=== PATIENT | female | born 1995 | race Caucasian/White ===

== ENCOUNTER → 2023-12-30 09:22 | Outpatient (REF) | payer BC, SELFPAY | LOC: PNTC 09:22 | PROVIDERS: ATTENDING PHYSICIAN Advanced Practice Midwife | DX: O36.60X0 Maternal care for excessive fetal growth, unspecified trimester, not applicable or unspecified (principal) | CPT/HCPCS: 76816 ==

== ENCOUNTER 2024-01-09 15:43 | Observation (INO) | payer BC, SELFPAY ==
[2024-01-09 15:48] VITALS: BP 124/86; BMI 36.6
== END 2024-01-09 16:32 | disposition home or self-care (01) ==
LOC: LDRP 15:43
PROVIDERS: ADMITTING PHYSICIAN Obstetrics & Gynecology; FAMILY PHYSICIAN Family Medicine; REFERRING PHYSICIAN Obstetrics & Gynecology
DX: O36.8130 Decreased fetal movements, third trimester, not applicable or unspecified (principal); Z3A.37 37 weeks gestation of pregnancy
CPT/HCPCS: 36415; 86850; 86900; 86901; G0378

== ENCOUNTER 2024-01-26 23:54 | Inpatient (IN) | payer BC, SELFPAY ==
[2024-01-27 00:06] VITALS: BP 122/84; BMI 37.4
[2024-01-27] MEDS: LR 1000 IV ×2 (00:55→03:59)
[2024-01-27 01:15] LABS: % Basophils 0.2 % (0-2); % Eosinophils 0.7 % (0-6); % Immature Granulocytes 0.8 % (0-0.5); % Lymphocytes 15.5 % (20.5-51.1); % Monocytes 6.4 % (1.7-9.3); % Neutrophils 76.4 % (42.2-75.2); Absolute Eosinophils 0.1 10^3/uL (0-0.7); Absolute Immature Granulocytes 0.1 10^3/uL (0-0.05); Absolute Lymphocytes 1.6 10^3/uL (1.2-3.4); Absolute Monocytes 0.7 10^3/uL (0.1-0.6); Absolute Neutrophils 8.1 10^3/uL (1.4-6.5); Hematocrit 34.8 % (37.0-47.0); Hemoglobin 12.4 g/dL (12.0-16.0); Mean Corp Hgb Conc. 35.6 g/dL (33.0-37.0); Mean Corpuscular Hgb 32.5 pg (27.0-31.0); Mean Corpuscular Volume 91.3 fL (81.0-99.0); Mean Platelet Volume 9.9 fL (7.4-10.4); Nucleated Red Blood Cells % 0 %; Platelet Count 190 10^3/uL (130-400); Red Blood Cell Count 3.81 10^6/uL (4.20-5.40); Red Cell Dist. Width 12.8 % (11.5-14.5); White Blood Cell Count 10.6 10^3/uL (4.8-10.8)
[2024-01-27] MEDS: FENTANYL/BUPIVACAINE 100 EPIDURAL (03:44)
[2024-01-27] MEDS: SUBLIMAZE 100 MCG EPIDURAL (03:44)
[2024-01-27] MEDS: PITOCIN 30 UNITS/NSS 500 ML IV (07:57)
[2024-01-27] MEDS: MOTRIN 600 MG PO (18:50)
[2024-01-28] MEDS: MOTRIN 600 MG PO ×3 (04:53→20:29)
[2024-01-28] MEDS: TYLENOL 650 MG PO ×3 (04:53→20:29)
[2024-01-28 05:39] LABS: Hematocrit 31.9 % (37.0-47.0); Hemoglobin 10.7 g/dL (12.0-16.0)
[2024-01-28] MEDS: SENOKOT-S 1 TABLET PO (08:49)
[2024-01-28] MEDS: FEOSOL 325 MG PO (08:49)
[2024-01-28] MEDS: PRENATAL PLUS 1 TABLET PO (08:51)
[2024-01-29] MEDS: MOTRIN 600 MG PO (06:04)
[2024-01-29] MEDS: TYLENOL 650 MG PO (06:04)
[2024-01-29] MEDS: PRENATAL PLUS 1 TABLET PO (09:13)
[2024-01-29] MEDS: SENOKOT-S 1 TABLET PO (09:13)
[2024-01-29] MEDS: FEOSOL 325 MG PO (09:13)
[2024-01-30 12:14] LABS: Syphilis/T. pallidum Ab Reflex Negative (Negative)
== END 2024-01-29 13:44 | disposition home or self-care (01) | DRG 807 ==
LOC: LDRP 23:54
PROVIDERS: Obstetrics & Gynecology; ADMITTING PHYSICIAN Obstetrics & Gynecology
PROC: 10E0XZZ Delivery of Products of Conception, External Approach (ICD-10-PCS; 2024-01-27)
PROC: 0HQ9XZZ Repair Perineum Skin, External Approach (ICD-10-PCS; 2024-01-27)
DX: O77.0 Labor and delivery complicated by meconium in amniotic fluid (principal); Z37.0 Single live birth; O69.81X0 Labor and delivery complicated by cord around neck, without compression, not applicable or unspecified; O70.0 First degree perineal laceration during delivery; Z3A.40 40 weeks gestation of pregnancy
CPT/HCPCS: 88307; 85014; 85018; 85025; 86780; 86850; 86900; 86901

== ENCOUNTER 2024-05-04 01:52 | Emergency (ER) | payer BC, SELFPAY ==
[2024-05-04 01:54] VITALS: BP 114/74
--- NOTE | 2024-05-04 01:59 | ED.GENMED ---
History of Present Illness
General
Chief Complaint: Fever
Time Seen by Provider: 05/04/24 01:59
History of Present Illness
History of Present Illness:
HPI: The patient presents with concerns for fever. This evening she had a general unwell feeling and describes sweats and chills. 6 days ago, the patient had right ureteral stone removal and stent placement. 4 days ago she removed the stent. Her
urologist is through [facility]. She reports no significant pain. She contacted her urologist who recommend that she comes to her local hospital and have CT imaging
EXAM:
GENERAL: Well appearing in no distress, borderline temperature elevation
HEENT: Moist oral mucosa
CARDIOVASCULAR: No murmurs, borderline tachycardic heart rate, regular rhythm, No chest wall tenderness
PULMONARY: No respiratory distress, breath sounds are clear and equal
ABDOMEN: Soft with no peritoneal signs, no tenderness, elevated BMI, no CVA tenderness
NEUROLOGIC: Excellent strength all extremities, no coordination deficits
PSYCHIATRIC: Appropriate mental status, normal insight and judgement
EXTREMITIES: Nontender, no edema, moves all extremities equally
SKIN: No rash, no lesions
TIME OF INITIAL ENCOUNTER: 2:15 AM
NUMBER AND COMPLEXITY OF PROBLEMS ADDRESSED AT THE ENCOUNTER
� Chronic conditions affecting care: Kidney stones, anemia
� Acute Exacerbation and/or Progression of Chronic Illness: This is an acute problem
� Differential Diagnosis includes: UTI, pyelonephritis, viral syndrome
AMOUNT AND/OR COMPLEXITY OF DATA TO BE REVIEWED AND ANALYZED
� I performed an independent evaluation of and my interpretation is:
EKG:
CT: CT imaging personally reviewed. There is moderate to severe right-sided hydroureteronephrosis with a 1 mm stone at the distal right ureter
X-rays:
Laboratory Studies: White count 3.2, lactic 0.9, normal renal function, urinalysis suggest contamination
Other:
� Review of other/old records: I reviewed notes from her delivery this past January; she did have an E. coli UTI that was resistant to levofloxacin in 2019
� Clinical information was obtained by an independent historian: I spoke to mother at bedside
� Prescriptions/Medications Considered but not given:
� Further testing considered but not performed: Consider chest x-ray however the respiratory complaints.
RISK OF COMPLICATIONS AND/OR MORBIDITY OR MORTALITY OF PATIENT MANAGEMENT
� Social determinants of health affecting care: Lives at home
� Discussion with other providers:
� Escalation of care including admission/observation vs risk of discharge considered: As patient had recent procedure, and arrives with tachycardia and at least borderline temperature elevation, labs obtained. She is also given
IV fluids and Tylenol as she did not take anything at home for the fever. COVID-negative. She does not have any respiratory complaints. She is well-appearing on reassessment at 3:50 AM. Unclear etiology of fever as the urinalysis is not
overwhelmingly showing signs of infection. However given her recent urologic procedure and now with fever, I recommend she goes on antibiotics. She does have multiple antibiotic allergies�ultimately was given Cipro.
Past History
Past History
ED Past Medical History: None
ED Past Surgical History: None
Social History
Tobacco: Non-smoker
Personal: Single
Living: with family
Phy Exam
Physical Exam
Physical Exam:
See HPI
Course
Orders/Labs/Results
Orders:
Orders
05/04/24 02:07
Urinalysis Reflex To Culture Urgent
Date Specimen was Collected: 05/04/24
Time Specimen was Collected: 02:06
Urine Microscopic Reflex Cult Urgent
Urine Culture Urgent
SU[facility]ANNE Source: U
Specimen Description:
Date Specimen was Collected: 05/04/24
Time Specimen was Collected: 02:06
05/04/24 02:11
CT Abd/pel Without Iv Or Oral Urgent
Comment:
Reason For Exam: recent R stent / stone; fever
Test Result ONCE
05/04/24 02:12
0.9% Sodium Chloride 1000 ml [Nss] 1,000 ml IV BOLUS
Acetaminophen [Tylenol] 1,000 mg PO NOW STA
05/04/24 02:15
Basic Metabolic Panel Urgent
Complete Blood Count/With Diff Urgent
HCG, Serum Qualitative Screen Urgent
Lactic Acid Urgent
Blood Culture Urgent
SUZANNE Source: Blood/Venous
Specimen Description:
05/04/24 02:27
COVID-19 Antigen Urgent
Source: Nasal Swab
05/04/24 03:47
Ciprofloxacin HCl [Cipro] 500 mg PO NOW STA
05/04/24 03:50
Urinalysis Reflex To Culture Urgent
Date Specimen was Collected: 05/04/24
Time Specimen was Collected: 03:50
Abnormal Lab Results
05/04/24 05/04/24
02:07 02:15
WBC 3.2 L 10^3/uL
(4.8-10.8)
RBC 4.17 L 10^6/uL
(4.20-5.40)
Hct 36.8 L %
(37.0-47.0)
Absolute Lymphs (auto) 0.6 L 10^3/uL
(1.2-3.4)
Lymphocytes % 18.3 L %
(20.5-51.1)
Monocytes % 11.4 H %
(1.7-9.3)
BUN 25 H mg/dl
(7-17)
Glucose 103 H mg/dl
(70-99)
Ur Occult Blood Reflex 2+ A
(Negative)
Leukocyte Esterase Rfl Trace A
(Negative)
Urine RBC 80-90 A /HPF
(0-2)
Urine WBC (Reflex) 11-15 A /HPF
(0-5)
Urine Bacteria (Reflex) Moderate A
(Negative)
05/04/24 02:15
05/04/24 02:15
Vital Signs
Initial and Last Documented VS:
Initial Vital Signs
Temp Pulse Resp BP Pulse Ox
100.1 F 110 22 114/74 98
05/04/24 01:54 05/04/24 01:54 05/04/24 01:54 05/04/24 01:54 05/04/24 01:54
Last Documented Vital Signs
Temp Pulse Resp BP Pulse Ox
100.1 F 99 15 114/74 97
05/04/24 01:54 05/04/24 02:30 05/04/24 02:30 05/04/24 01:54 05/04/24 02:30
*Critical Care Note
Total Time (30-74mins, 75-104mins- exclusive of procedures): Not Applicable
ED Attending Note
-
Portions of this chart may have been created with voice recognition software.� Occasional wrong word or��sound alike� substitutions may have occurred due to the inherent limitations of voice recognition software.
Discharge Plan
Departure
Patient Disposition: Home (Routine Discharge)
Date of Disposition: 05/04/24
Time of Disposition: 03:50
Patient with high blood pressure during this ER visit?: No
Discharge Problem:
Fever
Instructions: Fever, Adult (DC)
Prescriptions:
New
ciprofloxacin HCl [Cipro] 500 mg tablet
500 mg PO BID Qty: 14 0RF
No Action
prenat.vits,erik,zuw-qoad-ofibb Tablet
1 tab PO DAILY
Referrals:
Leticia Sinclair DO [Family Provider] -
Activity Restrictions/Additional Instructions:
Your white blood cell count was 3.2. Your temperature was 100.1. Your kidney function is normal. Your test is negative. Lactic acid level is normal at 0.9. Urinalysis suggested contamination however you did have somewhat of an
increased number of white cells in the urine at 11-15. Urine and blood cultures pending. COVID test negative. CT showed moderate to severe right-sided hydroureteronephrosis with a 1 mm distal ureteral stone. I have placed you back on Cipro.
Follow-up with your urologist by calling them in the morning. Return here if worse. Continue Tylenol and/or Motrin for fever.
Interventions
Interventions:
*Risk Screen - Suicide Last Done: 05/04/24 01:54
*General Assessment Last Done: 05/04/24 02:16
*Neglect/Abuse Screening Last Done: 05/04/24 01:54
ED- Fall Risk Assessment Last Done: 05/04/24 02:28
ED- Neurological Assessment Last Done: 05/04/24 02:28
ED-Skin Assessment Last Done: 05/04/24 02:28
Discharge Date and Time
Print Language: LATVIAN
[2024-05-04 02:15] VITALS: BMI 33.4
[2024-05-04 02:18] LABS: Urine Albumin Negative (Neg - Trace); Urine Bilirubin Negative (Negative); Urine Character Clear (Clear); Urine Color Yellow; Urine Glucose Negative (Negative); Urine Ketone Negative (Negative); Urine Leukocyte Trace (Negative); Urine Nitrite Negative (Negative); Urine Occult Blood 2+ (Negative); Urine Urobilinogen Negative (Neg - 1+)
[2024-05-04] MEDS: TYLENOL 1000 MG PO (02:19)
[2024-05-04] MEDS: NSS 1000 IV (02:20)
[2024-05-04 02:41] LABS: % Basophils 0.9 % (0-2); % Eosinophils 0.6 % (0-6); % Immature Granulocytes 0.3 % (0-0.5); % Lymphocytes 18.3 % (20.5-51.1); % Monocytes 11.4 % (1.7-9.3); % Neutrophils 68.5 % (42.2-75.2); Absolute Lymphocytes 0.6 10^3/uL (1.2-3.4); Absolute Monocytes 0.4 10^3/uL (0.1-0.6); Absolute Neutrophils 2.2 10^3/uL (1.4-6.5); Hematocrit 36.8 % (37.0-47.0); Hemoglobin 12.8 g/dL (12.0-16.0); Mean Corp Hgb Conc. 34.8 g/dL (33.0-37.0); Mean Corpuscular Hgb 30.7 pg (27.0-31.0); Mean Corpuscular Volume 88.2 fL (81.0-99.0); Nucleated Red Blood Cells % 0 %; Platelet Count 173 10^3/uL (130-400); Red Blood Cell Count 4.17 10^6/uL (4.20-5.40); Red Cell Dist. Width 11.8 % (11.5-14.5); White Blood Cell Count 3.2 10^3/uL (4.8-10.8)
[2024-05-04 02:44] LABS: COVID-19 Antigen Negative (Negative)
[2024-05-04 02:44] LABS: HCG, Serum Qualitative Screen Negative
[2024-05-04 02:48] LABS: Urine Squamous Cell >30 /LPF (Few)
[2024-05-04 02:49] LABS: Urine Bacteria Moderate (Negative); Urine Mucus Few; Urine Red Blood Cell 80-90 /HPF (0-2)
[2024-05-04 02:51] LABS: Lactic Acid 0.9 mmol/L (0.7-2.0)
[2024-05-04 02:52] LABS: Blood Urea Nitrogen 25 mg/dl (7-17); Calcium 9.8 mg/dl (8.4-10.2); Carbon Dioxide 23 mmol/L (22-30); Chloride 105 mmol/L (98-107); Estimated Creatinine Clearance 103 ml/min; Glucose 103 mg/dl (70-99); Potassium 4.5 mmol/L (3.5-5.1); Sodium 136 mmol/L (135-145); eGFR > 60.00
[2024-05-04] MEDS: CIPRO 500 MG PO (03:55)
[2024-05-04 04:32] LABS: Urine Albumin Negative (Neg - Trace); Urine Bilirubin Negative (Negative); Urine Character Clear (Clear); Urine Color Yellow; Urine Glucose Negative (Negative); Urine Ketone Negative (Negative); Urine Leukocyte Negative (Negative); Urine Nitrite Negative (Negative); Urine Occult Blood Trace (Negative); Urine Specific Gravity 1.005 (<1.030); Urine Urobilinogen Negative (Neg - 1+)
[2024-05-04 05:24] LABS: Urine Bacteria Few (Negative)
== END 2024-05-04 03:59 | disposition home or self-care (01) ==
LOC: EMR 01:52
PROVIDERS: EMERGENCY PHYSICIAN Emergency Medicine; FAMILY PHYSICIAN Family Medicine
DX: R50.9 Fever, unspecified (principal); Z87.442 Personal history of urinary calculi
CPT/HCPCS: 99284; 96360; 74176; 80048; 81003; 81015; 83605; 84703; 85025; 87040; 87086; 87811

== ENCOUNTER → 2024-09-10 16:43 | Outpatient (REF) | payer OTHER, SELFPAY | LOC: RAD 16:43 | PROVIDERS: ATTENDING PHYSICIAN Obstetrics & Gynecology | DX: O26.859 Spotting complicating pregnancy, unspecified trimester (principal) | CPT/HCPCS: 76801; 76817 ==

== ENCOUNTER 2024-11-11 11:40 | Emergency (ER) | payer OTHER, SELFPAY ==
[2024-11-11 11:41] VITALS: BP 116/78
[2024-11-11 11:54] VITALS: BMI 34.3
--- NOTE | 2024-11-11 13:33 | ED.GENMED ---
History of Present Illness
General
Chief Complaint: Fall
Source: patient
Exam Limitations: none
Time Seen by Provider: 11/11/24 11:50
History of Present Illness
History of Present Illness:
Patient fell down 8 stairs. G3, P2. 19-1/2 weeks . Complaining of buttock pain. Here mostly for concern of the fetus. Had some small amount of fluid leak when she got to the bottom of the stairs but states she has been having some
incontinence issues at times with the . No other complaints. No vaginal bleeding no abdominal pain no neck pain no headache.
Past History
Past History
ED Past Medical History: None
ED Past Surgical History: None
Social History
Tobacco: Non-smoker
Personal: Single
Living: with family
Review of Systems
Review of Systems
All Other Systems: Not applicable
Phy Exam
Physical Exam
Physical Exam:
TRAUMA EXAM:
VITAL SIGNS: Vital signs reviewed, cooperative
DISTRESS: No active disease
EYES: Pupils reactive, no orbital trauma
NOSE: No deformity or epistaxis
FACE AND SCALP: No scalp or facial trauma, external canals no blood
NECK: Supple nontender
BACK: Back nontender, pelvis stable to compression
RESPIRATORY: No distress, breath sounds normal, no tender chest wall
CARDIAC: No murmur, pulses equal and strong
ABDOMEN: Soft nontender bowel sounds normal
SKIN: Skin intact no bleeding, color normal
EXTREMITIES: Nontender. Minimal tenderness right buttock
NEUROLOGICAL: Alert, oriented, no motor deficits
PSYCH: Mood affect normal
Course
Orders/Labs/Results
Orders:
Orders
11/11/24 12:02
US 2nd/3rd Trimester Urgent
Comment:
Reason For Exam: Trauma/fall downstairs
Vital Signs
Initial and Last Documented VS:
Initial Vital Signs
Temp Pulse Resp BP Pulse Ox
98.8 F 89 16 116/78 100
11/11/24 11:41 11/11/24 11:41 11/11/24 11:41 11/11/24 11:41 11/11/24 11:41
Last Documented Vital Signs
Temp Pulse Resp BP Pulse Ox
98.8 F 81 16 116/78 100
11/11/24 11:41 11/11/24 12:00 11/11/24 11:41 11/11/24 11:41 11/11/24 11:41
MDM/Problems Addressed
Differential Diagnosis Includes:
Discussed with PAYLOADER OPERATOR. They will follow-up in office for rupture of membranes. Clinically unlikely.
*Radiology
Radiology exam reviewed: radiology read reviewed (Normal IUP. No trauma)
*Pulse Oximetry
Patient hypoxic: no
*Critical Care Note
Total Time (30-74mins, 75-104mins- exclusive of procedures): Not Applicable
ED Attending Note
-
Portions of this chart may have been created with voice recognition software.� Occasional wrong word or��sound alike� substitutions may have occurred due to the inherent limitations of voice recognition software.
Discharge Plan
Departure
Patient Disposition: Home (Routine Discharge)
Date of Disposition: 11/11/24
Time of Disposition: 13:35
Patient with high blood pressure during this ER visit?: No
Discharge Problem:
Fall downstairs, 19+ weeks , Buttock contusion
Prescriptions:
No Action
prenat.vits,erik,awq-pjka-nwgfd Tablet
1 tab PO DAILY
ciprofloxacin HCl [Cipro] 500 mg tablet
500 mg PO BID Qty: 14 0RF
Referrals:
Leticia Sinclair DO [Family Provider] -
Activity Restrictions/Additional Instructions:
Tylenol only for pain.
Go directly to the specimen accessioner's office further evaluation
Return with any concerning issues including abdominal pain vaginal bleeding unusual headache neck pain shortness of breath or any other concerning symptoms
Interventions
Interventions:
*Risk Screen - Suicide Last Done: 11/11/24 11:41
*Neglect/Abuse Screening Last Done: 11/11/24 11:41
ED-Musculoskeletal Assessment Last Done: 11/11/24 11:54
ED- Neurological Assessment Last Done: 11/11/24 11:54
ED-Skin Assessment Last Done: 11/11/24 11:54
Discharge Date and Time
Print Language: BRUNEIAN
== END 2024-11-11 11:54 | disposition home or self-care (01) ==
LOC: EMR 11:40
PROVIDERS: EMERGENCY PHYSICIAN Emergency Medicine; FAMILY PHYSICIAN Family Medicine
DX: O99.891 Other specified diseases and conditions complicating pregnancy (principal); S30.0XXA Contusion of lower back and pelvis, initial encounter; W10.9XXA Fall (on) (from) unspecified stairs and steps, initial encounter; Z3A.19 19 weeks gestation of pregnancy
CPT/HCPCS: 99284; 76805

== ENCOUNTER → 2024-11-18 10:21 | Outpatient (REF) | payer OTHER, SELFPAY | LOC: PNTC 10:21 | PROVIDERS: ATTENDING PHYSICIAN Student in an Organized Health Care Education/Training Program | DX: O36.5921 Maternal care for other known or suspected poor fetal growth, second trimester, fetus 1 (principal); Z36.3 Encounter for antenatal screening for malformations | CPT/HCPCS: 76815; 76820 ==

== ENCOUNTER 2025-04-11 19:42 | Inpatient (IN) | payer OTHER, SELFPAY ==
[2025-04-11 19:48] VITALS: BMI 37.9
[2025-04-11 19:56] VITALS: BP 127/78
[2025-04-11 20:30] LABS: Hematocrit 35.6 % (37.0-47.0); Hemoglobin 12.2 g/dL (12.0-16.0); Mean Corp Hgb Conc. 34.3 g/dL (33.0-37.0); Mean Corpuscular Volume 94.7 fL (81.0-99.0); Nucleated Red Blood Cells % 0 %; Platelet Count 154 10^3/uL (130-400); Red Cell Dist. Width 12.9 % (11.5-14.5)
[2025-04-11] MEDS: LR 1000 IV (21:51)
[2025-04-11] MEDS: PITOCIN 30 UNITS/NSS 500 ML IV (21:51)
[2025-04-12] MEDS: SUBLIMAZE 100 MCG EPIDURAL (03:20)
[2025-04-12] MEDS: FENTANYL/BUPIVACAINE 100 EPIDURAL (03:20)
[2025-04-12] MEDS: LR 1000 IV ×2 (03:26→06:22)
[2025-04-12] MEDS: ZOFRAN 4 MG IV (04:03)
[2025-04-12] MEDS: PITOCIN 30 UNITS/NSS 500 ML IV (07:27)
[2025-04-12] MEDS: PRENATAL PLUS 1 TABLET PO (16:07)
[2025-04-12] MEDS: MOTRIN 600 MG PO (16:07)
[2025-04-12] MEDS: COLACE 100 MG PO (16:08)
[2025-04-12] MEDS: TYLENOL 650 MG PO (17:47)
[2025-04-12] MEDS: COLACE PO (22:12)
[2025-04-13] MEDS: MOTRIN 600 MG PO ×3 (01:44→16:14)
[2025-04-13 04:55] LABS: Hematocrit 36.2 % (37.0-47.0); Hemoglobin 12.1 g/dL (12.0-16.0)
[2025-04-13] MEDS: PRENATAL PLUS 1 TABLET PO (08:36)
[2025-04-13] MEDS: COLACE 100 MG PO ×2 (08:36→20:30)
[2025-04-14] MEDS: MOTRIN 600 MG PO ×3 (00:09→16:32)
[2025-04-14] MEDS: PRENATAL PLUS 1 TABLET PO (08:18)
[2025-04-14] MEDS: COLACE 100 MG PO (08:18)
[2025-04-15 11:28] LABS: Syphilis/T. pallidum Ab Reflex Negative (Negative)
== END 2025-04-14 17:42 | disposition home or self-care (01) | DRG 807 ==
LOC: LDRP 19:42
PROVIDERS: ADMITTING PHYSICIAN Obstetrics & Gynecology
PROC: 3E033VJ Introduction of Other Hormone into Peripheral Vein, Percutaneous Approach (ICD-10-PCS; 2025-04-11)
PROC: 10E0XZZ Delivery of Products of Conception, External Approach (ICD-10-PCS; 2025-04-12)
PROC: 10907ZC Drainage of Amniotic Fluid, Therapeutic from Products of Conception, Via Natural or Artificial Opening (ICD-10-PCS; 2025-04-12)
DX: O36.63X0 Maternal care for excessive fetal growth, third trimester, not applicable or unspecified (principal); Z37.0 Single live birth; O69.81X0 Labor and delivery complicated by cord around neck, without compression, not applicable or unspecified; O77.0 Labor and delivery complicated by meconium in amniotic fluid; Z3A.39 39 weeks gestation of pregnancy
CPT/HCPCS: 36415; 85014; 85018; 85025; 86780; 86850; 86900; 86901